=== PATIENT | female | born 1960 | race Caucasian/White ===

== ENCOUNTER → 2016-07-08 | Outpatient (CLI) | payer MEDICARE, MEDICAID ==
[~2016-07-08] MED LIST: .; ALAVERT10 M1 PO; AMARYL4 MG PO; AMLODIPINE5 MG PO; AVANDIA2 MG PO; AVANDIA4 MG PO; CLARITIN10 MG PO; DARVOCET N 1001 TAB PO; DELTASONE20 MG PO; DIABETA5 MG PO; DUONEB 3 MG/3 ML3 M1 NEB; EVISTA60 MG PO; HYDROCHLOROTH12.5 M1 PO; JANUVIA100 MG PO; LANTUS SOLOS100 U/M1 SC; LANTUS100 U/ML SC; LEVAQUIN750 M1 PO; LEVAQUIN750 MG PO; LEVOFLOXACIN500 MG PO; LISINOPRIL AND1 TAB PO; LISINOPRIL HCTZ1 TA1 PO; LISINOPRIL20 MG PO; MOTRIN400 MG PO; MOTRIN800 MG PO; NEURONTIN100 MG PO; NICODERM21 MG/24 H T; NORVASC5 MG PO; NOVOLIN 70100 UNIT/1 SQ; OXYGEN NAS; OYSTER SHELL CA1 T17 PO; PREDNISONE10 MG PO; PROTONIX40 MG PO; PROVENTIL0.09 MG/AC IH; ROBITUSSIN AC 110 ML PO; ROCEPHIN1 GM IV; SINGULAIR10 M1 PO; SINGULAIR10 MG PO; SYMBICORT1 AE1 IH; SYMBICORT1 AE1 INH; TRADJENTA5 M1 PO; TUSSI-ORGANIDI480 ML PO; ZITHROMAX Z PA250 MG PO; ZITHROMAX500 M1 IV; [UNRECOGNIZED DRUG - OTHER] PO
== END | disposition home or self-care (01) ==
LOC: MAMMO 11:39
DX: Z12.31 Encounter for screening mammogram for malignant neoplasm of breast (principal); Z12.39 Encounter for other screening for malignant neoplasm of breast; Z13.820 Encounter for screening for osteoporosis; M81.0 Age-related osteoporosis without current pathological fracture

== ENCOUNTER → 2017-07-14 | Outpatient (CLI) | payer MEDICARE | END | disposition home or self-care (01) | LOC: MAMMO 14:34 | DX: Z12.31 Encounter for screening mammogram for malignant neoplasm of breast (principal) ==

== ENCOUNTER → 2018-10-28 | Outpatient (CLI) | payer OTHER ==
[~2018-10-28] MED LIST changes: +ATORVASTATIN CA20 M1 PO; +DOXYCYCLINE100 M3 PO; +LANTUS SOL100 UNIT/1 SC; +LISINOPRIL10 M1 PO; +MELOXICAM15 MG PO; +METFORMIN HYDR500 MG PO; +NEURONTIN600 MG PO
== END | disposition home or self-care (01) ==
LOC: MAMMO 06:59
DX: Z12.31 Encounter for screening mammogram for malignant neoplasm of breast (principal)

== ENCOUNTER 2018-10-29 14:47 | Inpatient (IN) | payer OTHER ==
[~2018-10-29] VITALS: Ht 160 cm; Wt 104.5 kg
--- NOTE | ~2018-10-29 | PR ---
[place], [place] PROGRESS NOTE [facility]: [facility] #[facility] [id number] UNIT #: [id number] ROOM: 505 DOCTOR: JEANINE STEWART MD,TON BIRTHDATE: [birth year] DOS: 10/31/2018 PULMONARY PROGRESS NOTE SUBJECTIVE: She has been doing very well and noted with gradual reduction and improvement of respiratory symptoms progressively. There were no symptoms of chest pain, fever or chills reported. The shortness of breath has been improving. The patient's coughing has been decreased significantly. OBJECTIVE: VITAL SIGNS: Normal temperature, respiratory rate 19, heart rate of 78, blood pressure 154/80. Pulse oxygen saturation on 3 liters nasal cannula 95% saturation recorded. HEENT: Head was atraumatic. Eyes nonicterus. NECK: Supple. CARDIOVASCULAR SYSTEM: S1, S2 is audible. LUNGS: The patient was noted without any wheezing or crackles at the present time. Breaths are noted [id number] diminished bilaterally. ABDOMEN: Soft, nontender. Bowel sounds present. EXTREMITIES: No acute change. IMPRESSION: Stable respiratory status was noted at the present time with favorable improvement continued for acute exacerbation of chronic obstructive pulmonary disease, gradually and progressively. PLAN OF MANAGEMENT: Consideration for possible home discharge at this time from the pulmonary standpoint. Continuation of the therapy, plan of management, care plan. Additional treatment changes will be made based on progression of the illness. TON SOLORZANO MD CM:PNTRANS [id number] TON STEWART MD 11/01/18 0140 interface
--- NOTE | ~2018-10-29 | CON ---
[place], [place] REPORT OF CONSULTATION NAME: ROYCE CANALES [facility] #: [id number] UNIT #: [id number] ROOM: 505 DOCTOR: JEANINE STEWART MDTON BIRTHDATE: [birth year] DOS: 10/30/2018 PULMONARY CONSULTATION, EVALUATION AND MANAGEMENT CONSULTATION REQUESTED BY: Hospitalist service. REASON FOR CONSULTATION: For assessment of COPD. HISTORY OF PRESENT ILLNESS: This is a 58-year-old white female patient is known to me from the past. She presented to the hospital as the patient was noted with increased symptoms of shortness of breath, coughing, and wheezing for the past few days. Symptoms noted gradually progressive and not responding to treatment with current home medical management, presented to the Emergency Room where she has been assessed and hospitalized yesterday for further medical management. The patient stating reduction in respiratory symptom since hospitalization. The cough has been noted with question of sputum expectoration. Denies chest pain or hemoptysis. REVIEW OF SYSTEMS: CONSTITUTIONAL: Fatigue and tiredness reported. Denies symptoms of fever or chills. EYES: Denies any burning, redness, or tenderness. EARS, NOSE, AND THROAT SYMPTOMS: Denies any symptoms of sore throat, hoarseness, otalgia, postnasal drainage or epistaxis. CARDIOVASCULAR: Denies angina pain, edema, or pain of the lower extremity. GASTROINTESTINAL: No dysphagia, nausea, vomiting, diarrhea, abdominal pain, hematemesis, melena, or hematochezia. SKIN: Denies abnormal lesions or rashes. CENTRAL NERVOUS SYSTEM: Denies dizziness, headache, diplopia, or syncopal episode. Remaining systems were reviewed and they were noted all negative. PAST MEDICAL HISTORY: 1. Chronic obstructive pulmonary disease. 2. Type 2 diabetes mellitus. 3. Essential hypertension. 4. General anxiety disorder. 5. Mild obesity. 6. Previous history of nicotine dependence. PAST SURGICAL HISTORY: 1. Cholecystectomy. 2. Therapeutic bronchoscopy, last one done in 2016. 3. Intubation and mechanical ventilation in 2016 for the respiratory failure management. SOCIAL HISTORY: The patient is , has 2 children, lives at home. Denies any history of illicit drug use or any alcohol use. Tobacco use reported as a teenager, 2 packs of cigarettes a day, stating she has not been smoking [place], [place] REPORT OF CONSULTATION [id number] UN[facility] #: [id number] ROOM: 505 DOCTOR: JEANINE STEWART MD,TON BIRTHDATE: 60 cigarettes since 2015. FAMILY HISTORY: The patient's father at age 76 with complication of myocardial infarction. Mother , with complication of emphysema. CURRENT MEDICATIONS: Which were actively administered were IV Solu-Medrol 60 mg b.i.d., Pulmicort Respules, lisinopril, loratadine, calcium carbonate, vitamin D, amlodipine, Lovenox for DVT prophylaxis, Amaryl, Protonix, Lipitor, gabapentin, Mucinex, DuoNeb, IV Rocephin, Zithromax, and other p.r.n. meds. DRUG ALLERGIES: No known drug allergies. PHYSICAL EXAMINATION: GENERAL: This is a 58-year-old female patient who has been currently sitting on the bed this morning of assessment. Height of 5 feet 3 inches, weight of 230 pounds. VITAL SIGNS: For the patient, which were recorded as normal temperature, respiratory rate of 18-20, heart rate of 86, 115 on admission, blood pressure 142/74-127/58. Pulse oxygen saturation on 3 liters nasal cannula saturation at rest. HEENT: Chronic obesity. Head was atraumatic. Eyes nonicterus. NECK: Supple. CARDIOVASCULAR: S1, S2 is audible. LUNGS: Noted with decreased breaths sounds were noted bilaterally. ABDOMEN: Soft, nontender. Bowel sounds present. EXTREMITIES: Noted without any edema, clubbing, or cyanosis. Moderate obesity. VISIBLE SKIN: No lesions or rashes. CENTRAL NERVOUS SYSTEM: Cranial nerves 2-12 intact. LABORATORY DATA: Which was reviewed on admission. CBC on 10/29/2018 as eosinophils of 4.5%, WBC count 7.7, otherwise normal CBC. Lactic acid 2.7, followup of 2.3. CMP of 10/29/2017, glucose 415 creatinine 1.33. Troponin 3 sets was noted as minimal elevation in troponin 0.053. The CMP that was done this morning, BUN 16, creatinine 1.30, glucose elevated at 415. Magnesium was 1.4. CBC this morning as normal CBC. PT/INR this morning was normal. The chest x-ray that was done in the Emergency room, 2-view was reviewed and it shows evidence of area of consolidation in the right lower lobe was noted any acute findings. IMPRESSION: 1. The patient who has been currently admitted to the hospital noted with acute exacerbation of chronic obstructive pulmonary disease associated with acute right lower lobe pneumonia, community-acquired infection. 2. Uncontrolled hyperglycemia with history of diabetes mellitus was also noted secondary to corticosteroids. 3. Acute sepsis was noted on admission related to current acute pneumonia. 4. Chronic obesity as well. 5. History of past tobacco use, stating no active tobacco use in the last 3 years. [place], [place] REPORT OF CONSULTATION NAME: ROYCE CANALES UNIT #: [id number] ROOM: 505 DOCTOR: JEANINE STEWART MD,TON BIRTHDATE: [birth year] PLAN OF MANAGEMENT: The patient seemed to be responding to current treatment with the use of the antibiotics, bronchodilators. Monitor culture results as well. Obtain the urine for Legionella antigen and strep antigen and viral assess for the current community-acquired pneumonia. Other therapy, plan of management and additional treatment changes will be made this patient based on the progression of the illness. Follow up chest x-ray in the next couple of days will be done to assess the progression of the current pulmonary infiltration progression. Other therapy, plan of management and additional treatment changes will be made for this patient based on the progression of the illness. Thanks for allowing me to participate in the care of this patient. TON SOLORZANO MD CM:CONSTR:REPORT OF CONSULTATION 1459 11/22/18 0951 interface
--- NOTE | ~2018-10-29 | EKG ---
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
[~2018-10-29 14:47] MED LIST changes: -ATORVASTATIN CA20 M1 PO; -DOXYCYCLINE100 M3 PO; -LANTUS SOL100 UNIT/1 SC; -LISINOPRIL10 M1 PO; -MELOXICAM15 MG PO; -METFORMIN HYDR500 MG PO; -NEURONTIN600 MG PO
[2018-10-29 14:50] VITALS: BP 143/74
[2018-10-29 16:26] LABS: BASO # 0.1 10*3/uL (0.0-0.1); BASO % 0.7 % (0.0-1.0); EOS # 0.5 10*3/uL (0.0-0.4); EOS % 4.5 % (1.0-4.0); HEMOGLOBIN 14.3 g/dl (12.0-16.0); LYMPH # 3.4 10*3/uL (1.3-4.4); LYMPH % 31.7 % (27.0-41.0); MEAN CELL VOLUME 94.5 fl (81.0-99.0); MEAN CORPUSCULAR HGB 29.4 pg (27.0-31.0); MEAN CORPUSCULAR HGB CONC 31.1 g/dl (33.0-37.0); MEAN PLATELET VOLUME 9.9 fl (9.6-12.3); MONO # 0.6 10*3/uL (0.1-1.0); MONO % 5.9 % (3.0-9.0); NEUT # 6.1 10*3/uL (2.3-7.9); NEUT % 56.6 % (47.0-73.0); PLATELET COUNT AUTOMATED 313 10*3/uL (130-400); RED BLOOD COUNT 4.87 10*6/uL (4.10-5.10); RED CELL DISTRI WIDTH 14.5 % (0-14.5); WHITE BLOOD COUNT 10.7 10*3/uL (4.8-10.8)
[2018-10-29 16:50] LABS: ALBUMIN 3.1 gm/dl (3.1-4.5); CREATININE 1.33 mg/dL (0.55-1.02); POTASSIUM 4.5 mmol/L (3.5-5.1); TOTAL PROTEIN 7.8 gm/dL (6.4-8.2)
--- NOTE | 2018-10-29 16:52 | NUR ---
PT REFUSES TO DISROBE, REMAINS CLOTHED AT HER REQUEST UNTIL ADMISSION.
[2018-10-29 17:00] VITALS: BP 156/66
[2018-10-29 17:10] LABS: BILIRUBIN NEGATIVE (NEGATIVE); BLOOD NEGATIVE (NEGATIVE); CLARITY SL CLOUDY (CLEAR); COLOR YELLOW (YELLOW); GLUCOSE 3+ (NEGATIVE); KETONE TRACE (NEGATIVE); LEUKO ESTERASE NEGATIVE (NEGATIVE); NITRITE NEGATIVE (NEGATIVE); SPECIFIC GRAVITY >= 1.030 (1.005-1.030); UROBILINOGEN 0.2 E.U./dl (0.2-1.0)
[2018-10-29 17:19] LABS: BACTERIA TRACE; EPITHELIAL CELLS 20-25
[2018-10-29 17:20] LABS: RBC 0-2 rbc/hpf (0-2)
[2018-10-29 18:03] VITALS: BP 131/74
--- NOTE | 2018-10-29 18:40 | NUR ---
A 58, admitted to 5E, under the services of LAXMI Camp DO with a diagnosis of SEVERE SEPSIS, HYPERGLYCEMIA, RENAL INSUFFICIENCY, COPD EXACERBATION, PNEUMONIA. Chief complaint is SHORT OF BREATH. Patient arrived via bed from ER. Monitor applied. Initial assessment completed. Vital signs taken and recorded. LAXMI CAMP DO notified of admission to the unit. Orders received. See assessment for past medical history, medications and allergies. Patient and/or family oriented to unit. [address] visitation policy reviewed. Clothing/patient valuable form completed. SKIN INYACT WITH NO WOUNDS. PNEUMONIA VACCINATION CURRENT. WALTER VILLALTA
--- NOTE | 2018-10-29 19:37 | NUR ---
INSTRUCTION ON FLUTTER DONE WITH PT. TECHNIQUE GONE OVER AND OBSERVED WITH PT. PT IS NOTED TO HAVE GOOD TECHNIQUE AND APPEARS TO HAVE GOOD TOLERATION OF DEVICE. INSTRUCTED PT TO PERFORM Q1H. WILL REASSESS COMPLIANCE WITH FLUTTER.
[2018-10-29 20:00] VITALS: BP 140/72
[2018-10-29] MEDS ORDERED: NEURONTIN600 MG PO (20:24)
[2018-10-29] MEDS ORDERED: MELOXICAM15 MG PO (20:27)
[2018-10-29] MEDS ORDERED: LANTUS SOL100 UNIT/1 SC (20:28)
[2018-10-29] MEDS ORDERED: ATORVASTATIN CA20 M1 PO (20:28)
[2018-10-29] MEDS ORDERED: METFORMIN HYDR500 MG PO (20:29)
[2018-10-29] MEDS ORDERED: LISINOPRIL10 M1 PO (20:32)
--- NOTE | 2018-10-29 20:41 | NUR ---
PTS HOME MEDICATIONS VERIFIED. DR VARGAS NOTIFIED
--- NOTE | 2018-10-29 22:01 | NUR ---
CALLED GALE VARGAS WITH [employer] SAID SHE WA JUST GOING TO WATCH.
[2018-10-30] VITALS: BP 127/58
--- NOTE | 2018-10-30 01:01 | NUR ---
INFORMED DR VARGAS OF ELEVATED TROPONIN. CONTINUE TO MONITOR THE PT.
[2018-10-30 06:04] LABS: HEMATOCRIT 43.4 % (37.0-47.0); HEMOGLOBIN 13.2 g/dl (12.0-16.0); MEAN CELL VOLUME 95.6 fl (81.0-99.0); MEAN CORPUSCULAR HGB 29.1 pg (27.0-31.0); MEAN CORPUSCULAR HGB CONC 30.4 g/dl (33.0-37.0); MEAN PLATELET VOLUME 10.2 fl (9.6-12.3); PLATELET COUNT AUTOMATED 263 10*3/uL (130-400); RED BLOOD COUNT 4.54 10*6/uL (4.10-5.10); RED CELL DISTRI WIDTH 14.4 % (0-14.5); WHITE BLOOD COUNT 7.8 10*3/uL (4.8-10.8)
[2018-10-30 06:31] LABS: ALBUMIN 2.8 gm/dl (3.1-4.5); CREATININE 1.3 mg/dL (0.55-1.02); POTASSIUM 4.9 mmol/L (3.5-5.1)
[2018-10-30 06:35] LABS: THYROID STIM HORMONE (HS) 0.322 uIU/ml (0.358-4.75); TOTAL PROTEIN 7.5 gm/dL (6.4-8.2)
[2018-10-30 06:38] LABS: TOTAL CELLS COUNTED 100 #CELLS
[2018-10-30 06:39] LABS: PLATELET SUFFICIENCY NORMAL (NORMAL); POLYCHROMASIA SLIGHT
[2018-10-30 06:42] LABS: INTERNATIONAL NORM RATIO 0.9 (2.0-3.5)
[2018-10-30 06:52] LABS: VITAMIN D, 25-HYDROXY 39.4 ng/mL (30-100)
[2018-10-30 08:00] VITALS: BP 160/80
--- NOTE | 2018-10-30 08:00 | NUR ---
MEDICATED WITH TYLENOL PER PRN ORDER FOR COMPLAINTS OF HEADACHE. WILL MONITOR FOR EFFECTIVENESS.
--- NOTE | 2018-10-30 10:00 | NUR ---
PT STATES TYLENOL HELPED WITH HEADACHE.
[2018-10-30 10:07] LABS: FREE T4 1.1 ng/dl (0.76-1.46)
[2018-10-30 10:12] LABS: THYROID STIM HORMONE (HS) 0.326 uIU/ml (0.358-4.75)
--- NOTE | 2018-10-30 10:59 | NUR ---
DR SOLORZANO IN TO SEE PT AT TIME REGARDING NEW CONSULT.
[2018-10-30 12:00] VITALS: BP 146/85
[2018-10-30 16:00] VITALS: BP 151/74
[2018-10-30 20:00] VITALS: BP 147/86
--- NOTE | 2018-10-30 23:46 | NUR ---
PATIENT IS SLEEPING WITH EASY AND REGULAR RESPERS ON 3L VIA NASAL CANNULA. NO S/S OF DISTRESS NOTED AT THIS TIME. BED IS LOW, LOCKED, AND CALL LIGHT IS WITHIN REACH. WILL MONITOR.
[2018-10-31] VITALS: BP 156/82
[2018-10-31 06:58] LABS: BASO % 0.1 % (0.0-1.0); HEMOGLOBIN 13.5 g/dl (12.0-16.0); LYMPH # 1.5 10*3/uL (1.3-4.4); LYMPH % 9.6 % (27.0-41.0); MEAN CELL VOLUME 94.4 fl (81.0-99.0); MEAN CORPUSCULAR HGB CONC 30.7 g/dl (33.0-37.0); MEAN PLATELET VOLUME 10.3 fl (9.6-12.3); MONO # 0.5 10*3/uL (0.1-1.0); MONO % 3.3 % (3.0-9.0); NEUT # 13.2 10*3/uL (2.3-7.9); PLATELET COUNT AUTOMATED 314 10*3/uL (130-400); RED BLOOD COUNT 4.66 10*6/uL (4.10-5.10); RED CELL DISTRI WIDTH 14.6 % (0-14.5); WHITE BLOOD COUNT 15.4 10*3/uL (4.8-10.8)
[2018-10-31 07:23] LABS: CHLORIDE 94 mmol/L (98-107); SODIUM 135 mmol/L (136-145)
[2018-10-31 07:31] LABS: ALBUMIN 3.2 gm/dl (3.1-4.5); ALKALINE PHOSPHATASE 126 U/L (45-117); BUN 25 mg/dl (7-24); PHOSPHOROUS 4.3 mg/dL (2.5-4.9); SGOT/AST 14 IU/L (3-35); SGPT/ALT 19 U/L (12-78); TOTAL PROTEIN 7.8 gm/dL (6.4-8.2)
[2018-10-31 08:00] VITALS: BP 122/78; BP 154/80
[2018-10-31 12:00] VITALS: BP 156/79
[2018-10-31] MEDS ORDERED: PREDNISONE10 MG PO (15:15)
[2018-10-31] MEDS ORDERED: LEVAQUIN750 M1 PO (15:15)
--- NOTE | 2018-10-31 15:30 | NUR ---
Discharge instructions reviewed with patient/family. Patient receptive and verbalizes understanding. Follow-up care arranged. Written instructions given to patient/family. IV site and lunchroom monitor removed. Pt trasnported to lobby via wheelchair. KYLE TURPIN
[2018-11-02 18:08] LABS: ADENOVIRUS Negative (Negative); INFLUENZA A Negative (Negative); INFLUENZA B Negative (Negative); METAPNEUMOVIRUS Positive (Negative); PARAINFLUENZA 1 Negative (Negative); PARAINFLUENZA 2 Negative (Negative); PARAINFLUENZA 3 Negative (Negative); RHINOVIRUS Negative (Negative); RSV A Negative (Negative); RSV B Negative (Negative)
== END 2018-10-31 15:30 | disposition home or self-care (01) | DRG 871 ==
LOC: ED 14:47 → EDHOLD 17:44 → 5E 18:02
PROVIDERS: Internal Medicine; Internal Medicine Critical Care Medicine; Physician Assistant; Student in an Organized Health Care Education/Training Program; ADMIT Emergency Medicine
DX: A41.9 Sepsis, unspecified organism (principal); J18.1 Lobar pneumonia, unspecified organism; E44.0 Moderate protein-calorie malnutrition; J96.10 Chronic respiratory failure, unspecified whether with hypoxia or hypercapnia; Z68.41 Body mass index [BMI] 40.0-44.9, adult; N18.3 Chronic kidney disease, stage 3 (moderate); R65.20 Severe sepsis without septic shock; J43.9 Emphysema, unspecified; I12.9 Hypertensive chronic kidney disease with stage 1 through stage 4 chronic kidney disease, or unspecified chronic kidney disease; E53.8 Deficiency of other specified B group vitamins; K21.9 Gastro-esophageal reflux disease without esophagitis; F32.9 Major depressive disorder, single episode, unspecified; E11.22 Type 2 diabetes mellitus with diabetic chronic kidney disease; F41.1 Generalized anxiety disorder; E66.9 Obesity, unspecified; E78.5 Hyperlipidemia, unspecified; D72.1 Eosinophilia; E87.8 Other disorders of electrolyte and fluid balance, not elsewhere classified; R80.0 Isolated proteinuria; E11.65 Type 2 diabetes mellitus with hyperglycemia; Z79.4 Long term (current) use of insulin; Z87.891 Personal history of nicotine dependence; Z90.49 Acquired absence of other specified parts of digestive tract; Z82.49 Family history of ischemic heart disease and other diseases of the circulatory system; Z82.5 Family history of asthma and other chronic lower respiratory diseases; Z83.3 Family history of diabetes mellitus; Z80.8 Family history of malignant neoplasm of other organs or systems; Z79.899 Other long term (current) drug therapy

== ENCOUNTER 2019-02-11 19:44 | Inpatient (IN) | payer OTHER ==
[~2019-02-11] VITALS: Ht 157.4 cm; Wt 105.4 kg
--- NOTE | ~2019-02-11 | EKG ---
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
[~2019-02-11 19:44] MED LIST changes: +ATORVASTATIN CA20 M1 PO; +LANTUS SOL100 UNIT/1 SC; +LISINOPRIL10 M1 PO; +MELOXICAM15 MG PO; +METFORMIN HYDR500 MG PO; +NEURONTIN600 MG PO
[2019-02-11 19:45] VITALS: BP 157/78
[2019-02-11 20:24] LABS: BASO # 0.1 10*3/uL (0.0-0.1); BASO % 0.5 % (0.0-1.0); EOS % 0.1 % (1.0-4.0); HEMATOCRIT 43.3 % (37.0-47.0); HEMOGLOBIN 13.3 g/dl (12.0-16.0); LYMPH # 4.1 10*3/uL (1.3-4.4); LYMPH % 20.8 % (27.0-41.0); MEAN CELL VOLUME 96.9 fl (81.0-99.0); MEAN CORPUSCULAR HGB 29.8 pg (27.0-31.0); MEAN CORPUSCULAR HGB CONC 30.7 g/dl (33.0-37.0); MONO # 1.3 10*3/uL (0.1-1.0); MONO % 6.8 % (3.0-9.0); NEUT # 14.1 10*3/uL (2.3-7.9); NEUT % 70.8 % (47.0-73.0); PLATELET COUNT AUTOMATED 371 10*3/uL (130-400); RED BLOOD COUNT 4.47 10*6/uL (4.10-5.10); RED CELL DISTRI WIDTH 13.5 % (0-14.5); WHITE BLOOD COUNT 19.8 10*3/uL (4.8-10.8)
[2019-02-11 20:40] LABS: ALBUMIN 2.9 gm/dl (3.1-4.5); CREATININE 1.31 mg/dL (0.55-1.02); POTASSIUM 4.1 mmol/L (3.5-5.1); TOTAL PROTEIN 8.2 gm/dL (6.4-8.2)
[2019-02-11 20:46] VITALS: BP 136/69
[2019-02-11 20:46] LABS: TROPONIN I 0.184 ng/ml (<0.045)
[2019-02-11 21:48] VITALS: BP 143/73
[2019-02-11 21:50] VITALS: BP 153/72
[2019-02-11 23:21] LABS: BILIRUBIN NEGATIVE (NEGATIVE); BLOOD 1+ (NEGATIVE); CLARITY CLEAR (CLEAR); COLOR YELLOW (YELLOW); GLUCOSE 1+ (NEGATIVE); KETONE NEGATIVE (NEGATIVE); LEUKO ESTERASE 1+ (NEGATIVE); NITRITE NEGATIVE (NEGATIVE); PH 5.5 (5.0-9.0)
[2019-02-11 23:28] LABS: BACTERIA TRACE; WBC 21-30 wbc/hpf (0-5)
[2019-02-12] VITALS: BP 148/76
[2019-02-12 06:36] LABS: CREATININE 1.25 mg/dL (0.55-1.02); PHOSPHOROUS 3.4 mg/dL (2.5-4.9)
[2019-02-12 06:37] LABS: POTASSIUM 5.1 mmol/L (3.5-5.1)
[2019-02-12 06:41] LABS: THYROID STIM HORMONE (HS) 0.546 uIU/ml (0.358-4.75)
[2019-02-12 07:15] LABS: HEMATOCRIT 45.4 % (37.0-47.0); HEMOGLOBIN 13.1 g/dl (12.0-16.0); MEAN CELL VOLUME 99.3 fl (81.0-99.0); MEAN CORPUSCULAR HGB 28.7 pg (27.0-31.0); MEAN CORPUSCULAR HGB CONC 28.9 g/dl (33.0-37.0); MEAN PLATELET VOLUME 10.3 fl (9.6-12.3); PLATELET COUNT AUTOMATED 344 10*3/uL (130-400); RED BLOOD COUNT 4.57 10*6/uL (4.10-5.10); RED CELL DISTRI WIDTH 13.5 % (0-14.5); WHITE BLOOD COUNT 17.7 10*3/uL (4.8-10.8)
[2019-02-12 07:58] LABS: BASOPHILS 1 % (0-1); PLATELET SUFFICIENCY NORMAL (NORMAL); TOTAL CELLS COUNTED 100 #CELLS
[2019-02-12 08:04] LABS: VITAMIN D, 25-HYDROXY 30.2 ng/mL (30-100)
[2019-02-12 12:00] VITALS: BP 138/80
[2019-02-12 16:00] VITALS: BP 140/65
[2019-02-12 19:07] LABS: BILIRUBIN NEGATIVE (NEGATIVE); BLOOD TRACE-INTACT (NEGATIVE); CLARITY CLEAR (CLEAR); COLOR YELLOW (YELLOW); GLUCOSE 3+ (NEGATIVE); KETONE NEGATIVE (NEGATIVE); LEUKO ESTERASE NEGATIVE (NEGATIVE); NITRITE NEGATIVE (NEGATIVE); PH 5.5 (5.0-9.0); UROBILINOGEN 0.2 E.U./dl (0.2-1.0)
[2019-02-12 19:15] LABS: BACTERIA 2+; RBC 0-2 rbc/hpf (0-2); YEAST TRACE
[2019-02-12 20:00] VITALS: BP 129/60
[2019-02-13] VITALS: BP 136/62
[2019-02-13 06:25] LABS: BASO # 0.1 10*3/uL (0.0-0.1); BASO % 0.3 % (0.0-1.0); EOS % 0.1 % (1.0-4.0); HEMATOCRIT 38.5 % (37.0-47.0); HEMOGLOBIN 11.1 g/dl (12.0-16.0); LYMPH # 3.8 10*3/uL (1.3-4.4); LYMPH % 21.1 % (27.0-41.0); MEAN CELL VOLUME 98.5 fl (81.0-99.0); MEAN CORPUSCULAR HGB 28.4 pg (27.0-31.0); MEAN CORPUSCULAR HGB CONC 28.8 g/dl (33.0-37.0); MEAN PLATELET VOLUME 10.2 fl (9.6-12.3); MONO # 1.1 10*3/uL (0.1-1.0); MONO % 6.1 % (3.0-9.0); NEUT # 12.8 10*3/uL (2.3-7.9); NEUT % 71.2 % (47.0-73.0); PLATELET COUNT AUTOMATED 324 10*3/uL (130-400); RED BLOOD COUNT 3.91 10*6/uL (4.10-5.10); RED CELL DISTRI WIDTH 13.5 % (0-14.5)
[2019-02-13 06:52] LABS: BUN 29 mg/dl (7-24); CHLORIDE 98 mmol/L (98-107); CREATININE 1.03 mg/dL (0.55-1.02); POTASSIUM 4.3 mmol/L (3.5-5.1); SODIUM 137 mmol/L (136-145)
[2019-02-13 08:00] VITALS: BP 121/67
[2019-02-13 12:00] VITALS: BP 137/74
[2019-02-13 16:00] VITALS: BP 130/78
[2019-02-13 18:05] LABS: HEPATITIS B SURFACE AG Negative (Negative); HEPATITIS C VIRUS ANTIBODY 0.1 s/co (0.0-0.9)
[2019-02-13 20:00] VITALS: BP 145/69
[2019-02-14] VITALS: BP 120/66
[2019-02-14 06:42] LABS: HEMATOCRIT 40.3 % (37.0-47.0); HEMOGLOBIN 11.7 g/dl (12.0-16.0); MEAN CELL VOLUME 99.5 fl (81.0-99.0); MEAN CORPUSCULAR HGB 28.9 pg (27.0-31.0); MEAN PLATELET VOLUME 10.1 fl (9.6-12.3); PLATELET COUNT AUTOMATED 362 10*3/uL (130-400); RED BLOOD COUNT 4.05 10*6/uL (4.10-5.10); RED CELL DISTRI WIDTH 13.5 % (0-14.5); WHITE BLOOD COUNT 15.6 10*3/uL (4.8-10.8)
[2019-02-14 07:03] LABS: BUN 28 mg/dl (7-24); CHLORIDE 98 mmol/L (98-107); CREATININE 1.03 mg/dL (0.55-1.02); SODIUM 139 mmol/L (136-145)
[2019-02-14 07:11] LABS: TOTAL CELLS COUNTED 100 #CELLS
[2019-02-14 07:12] LABS: PLATELET SUFFICIENCY NORMAL (NORMAL)
[2019-02-14 08:00] VITALS: BP 122/84
[2019-02-14 12:00] VITALS: BP 143/74
[2019-02-14 16:00] VITALS: BP 139/74
[2019-02-14 20:00] VITALS: BP 135/74; BP 151/70
[2019-02-15] VITALS: BP 115/53
[2019-02-15 06:32] LABS: HEMATOCRIT 40.4 % (37.0-47.0); HEMOGLOBIN 11.9 g/dl (12.0-16.0); MEAN CORPUSCULAR HGB 29.2 pg (27.0-31.0); MEAN CORPUSCULAR HGB CONC 29.5 g/dl (33.0-37.0); MEAN PLATELET VOLUME 9.7 fl (9.6-12.3); PLATELET COUNT AUTOMATED 364 10*3/uL (130-400); RED BLOOD COUNT 4.08 10*6/uL (4.10-5.10); RED CELL DISTRI WIDTH 13.6 % (0-14.5); WHITE BLOOD COUNT 13.6 10*3/uL (4.8-10.8)
[2019-02-15 07:01] LABS: ALBUMIN 2.5 gm/dl (3.1-4.5); ALKALINE PHOSPHATASE 110 U/L (45-117); BUN 21 mg/dl (7-24); CHLORIDE 97 mmol/L (98-107); CREATININE 1.02 mg/dL (0.55-1.02); POTASSIUM 4.3 mmol/L (3.5-5.1); SGOT/AST 23 IU/L (3-35); SGPT/ALT 58 U/L (12-78); SODIUM 141 mmol/L (136-145); TOTAL PROTEIN 6.9 gm/dL (6.4-8.2)
[2019-02-15 07:04] LABS: PLATELET SUFFICIENCY NORMAL (NORMAL); TOTAL CELLS COUNTED 100 #CELLS
[2019-02-15 08:00] VITALS: BP 129/63
[2019-02-15] MEDS ORDERED: DOXYCYCLINE100 M3 PO (10:36)
== END 2019-02-15 11:29 | disposition home health service (06) | DRG 871 ==
LOC: ED 19:44 → 5E 21:19 → EDHOLD 21:19 → 5E 21:38
PROVIDERS: Family Medicine; Hospitalist; Internal Medicine; Physician Assistant; Student in an Organized Health Care Education/Training Program; ADMIT Internal Medicine
PROC: 0Y903ZZ Drainage of Right Buttock, Percutaneous Approach (ICD-10-PCS; principal; 2019-02-12)
DX: A41.9 Sepsis, unspecified organism (principal); E43 Unspecified severe protein-calorie malnutrition; J18.9 Pneumonia, unspecified organism; L03.317 Cellulitis of buttock; J44.1 Chronic obstructive pulmonary disease with (acute) exacerbation; J44.0 Chronic obstructive pulmonary disease with (acute) lower respiratory infection; E87.1 Hypo-osmolality and hyponatremia; J96.11 Chronic respiratory failure with hypoxia; L02.31 Cutaneous abscess of buttock; Z68.41 Body mass index [BMI] 40.0-44.9, adult; Z66 Do not resuscitate; Z51.5 Encounter for palliative care; R65.20 Severe sepsis without septic shock; E66.01 Morbid (severe) obesity due to excess calories; R74.0 Nonspecific elevation of levels of transaminase and lactic acid dehydrogenase [LDH]; B95.62 Methicillin resistant Staphylococcus aureus infection as the cause of diseases classified elsewhere; D72.810 Lymphocytopenia; E78.2 Mixed hyperlipidemia; I12.9 Hypertensive chronic kidney disease with stage 1 through stage 4 chronic kidney disease, or unspecified chronic kidney disease; N18.3 Chronic kidney disease, stage 3 (moderate); E11.22 Type 2 diabetes mellitus with diabetic chronic kidney disease; E53.8 Deficiency of other specified B group vitamins; E11.65 Type 2 diabetes mellitus with hyperglycemia; E87.8 Other disorders of electrolyte and fluid balance, not elsewhere classified; Z79.4 Long term (current) use of insulin; Z99.81 Dependence on supplemental oxygen; Z90.49 Acquired absence of other specified parts of digestive tract; Z87.891 Personal history of nicotine dependence; Z82.49 Family history of ischemic heart disease and other diseases of the circulatory system; Z82.5 Family history of asthma and other chronic lower respiratory diseases; Z83.3 Family history of diabetes mellitus; Z80.8 Family history of malignant neoplasm of other organs or systems; Z79.899 Other long term (current) drug therapy

== ENCOUNTER → 2019-10-27 | Day surgery (SDC) | payer OTHER ==
[~2019-10-27] VITALS: Ht 170.1 cm; Wt 108.0 kg
[~2019-10-27] MED LIST changes: +DOXYCYCLINE100 M3 PO
[2019-10-27 08:40] VITALS: BP 162/87
[2019-10-27 10:09] VITALS: BP 147/70
[2019-10-27 10:24] VITALS: BP 142/68
[2019-10-27 10:39] VITALS: BP 140/68
== END | disposition home or self-care (01) ==
LOC: SDC 10-25 12:30
DX: Z12.11 Encounter for screening for malignant neoplasm of colon (principal); I10 Essential (primary) hypertension; E11.40 Type 2 diabetes mellitus with diabetic neuropathy, unspecified; E78.5 Hyperlipidemia, unspecified; J44.9 Chronic obstructive pulmonary disease, unspecified; Z79.84 Long term (current) use of oral hypoglycemic drugs; Z79.899 Other long term (current) drug therapy; Z87.891 Personal history of nicotine dependence; Z98.890 Other specified postprocedural states; Z83.6 Family history of other diseases of the respiratory system
CPT/HCPCS: 00812; G0121

== ENCOUNTER → 2020-08-30 | Outpatient (CLI) | payer OTHER | END | disposition home or self-care (01) | LOC: MAMMO 06:45 | PROVIDERS: ATTEND Physician Assistant | DX: Z12.31 Encounter for screening mammogram for malignant neoplasm of breast (principal) ==

== ENCOUNTER → 2020-09-25 | Outpatient (CLI) | payer OTHER | END | disposition home or self-care (01) | LOC: RESCLI 06:40 | PROVIDERS: ATTEND Internal Medicine | DX: J43.9 Emphysema, unspecified (principal); I10 Essential (primary) hypertension; E55.9 Vitamin D deficiency, unspecified; J96.11 Chronic respiratory failure with hypoxia; K21.9 Gastro-esophageal reflux disease without esophagitis; E78.5 Hyperlipidemia, unspecified; E11.42 Type 2 diabetes mellitus with diabetic polyneuropathy; M19.90 Unspecified osteoarthritis, unspecified site; J30.2 Other seasonal allergic rhinitis; Z99.81 Dependence on supplemental oxygen; Z79.4 Long term (current) use of insulin; Z79.899 Other long term (current) drug therapy; Z87.891 Personal history of nicotine dependence ==

== ENCOUNTER 2020-12-27 13:50 | Inpatient (IN) | payer OTHER ==
[2020-12-27] VITALS (10 sets, daily range): BP systolic 126–155; BP diastolic 63–82
[~2020-12-27] VITALS: Ht 165.1 cm; Wt 111.6 kg
[2020-12-27 14:33] LABS: HEMATOCRIT 44.4 % (37.0-47.0); MEAN CELL VOLUME 95.7 fl (81.0-99.0); MEAN CORPUSCULAR HGB 28.4 pg (27.0-31.0); MEAN CORPUSCULAR HGB CONC 29.7 g/dl (33.0-37.0); MEAN PLATELET VOLUME 9.5 fl (9.6-12.3); NUCLEATED RED BLOOD CELL 0.1 % (0.0-0.0); PLATELET COUNT AUTOMATED 492 10*3/uL (130-400); RED BLOOD COUNT 4.64 10*6/uL (4.10-5.10); RED CELL DISTRI WIDTH 15.4 % (0-14.5); WHITE BLOOD COUNT 20.7 10*3/uL (4.8-10.8)
[2020-12-27 14:38] LABS: ABG BASE EXCESS 2.8 mmol/L (-2.0-2.0); ARTERIAL BLOOD GAS PH 7.259 (7.35-7.45); ARTERIAL BLOOD GAS PO2 71.7 (80-90)
[2020-12-27 14:53] LABS: PLATELET SUFFICIENCY HIGH (NORMAL); POLYCHROMASIA SLIGHT; TOTAL CELLS COUNTED 100 #CELLS
[2020-12-27 14:59] LABS: ALBUMIN 3.3 gm/dl (3.1-4.5); CREATININE 1.29 mg/dL (0.55-1.02); TOTAL PROTEIN 9.1 gm/dL (6.4-8.2)
[2020-12-27 15:01] LABS: TROPONIN I 0.103 ng/ml (<0.045)
[2020-12-27 17:26] LABS: ABG BASE EXCESS 6.4 mmol/L (-2.0-2.0); ARTERIAL BLOOD GAS PH 7.308 (7.35-7.45); ARTERIAL BLOOD GAS PO2 87.4 (80-90)
[2020-12-27] MEDS ORDERED: PROTONIX40 MG PO (18:23)
[2020-12-27] MEDS ORDERED: FISH OIL 1,2001 EAC6 PO (18:27)
[2020-12-27] MEDS ORDERED: ACTOS30 M1 PO (18:30)
[2020-12-27 20:52] LABS: ABG BASE EXCESS 1.9 mmol/L (-2.0-2.0); ARTERIAL BLOOD GAS PH 7.302 (7.35-7.45); ARTERIAL BLOOD GAS PO2 84.1 (80-90)
[2020-12-28] VITALS: BP 140/75
[2020-12-28 04:00] VITALS: BP 133/71
[2020-12-28 05:48] LABS: ALBUMIN 2.8 gm/dl (3.1-4.5); BUN 29 mg/dl (7-24); CHLORIDE 101 mmol/L (98-107); CREATININE 1.12 mg/dL (0.55-1.02); POTASSIUM 4.8 mmol/L (3.5-5.1); SGOT/AST 16 IU/L (3-35); SGPT/ALT 18 U/L (12-78); SODIUM 136 mmol/L (136-145)
[2020-12-28 05:50] LABS: ALKALINE PHOSPHATASE 102 U/L (45-117); TOTAL PROTEIN 7.9 gm/dL (6.4-8.2)
[2020-12-28 06:33] LABS: HEMATOCRIT 39.1 % (37.0-47.0); MEAN CELL VOLUME 94.7 fl (81.0-99.0); MEAN CORPUSCULAR HGB 28.1 pg (27.0-31.0); MEAN CORPUSCULAR HGB CONC 29.7 g/dl (33.0-37.0); MEAN PLATELET VOLUME 10.1 fl (9.6-12.3); PLATELET COUNT AUTOMATED 385 10*3/uL (130-400); RED BLOOD COUNT 4.13 10*6/uL (4.10-5.10); RED CELL DISTRI WIDTH 14.8 % (0-14.5); WHITE BLOOD COUNT 15.6 10*3/uL (4.8-10.8)
[2020-12-28 06:50] LABS: ACT PARTIAL THROMBO TIME 25.9 SECONDS (20.0-32.1)
[2020-12-28 06:55] LABS: TOTAL CELLS COUNTED 100 #CELLS
[2020-12-28 06:56] LABS: PLATELET SUFFICIENCY NORMAL (NORMAL)
[2020-12-28 07:37] LABS: ABG BASE EXCESS 6.5 mmol/L (-2.0-2.0); ARTERIAL BLOOD GAS PH 7.356 (7.35-7.45); ARTERIAL BLOOD GAS PO2 151.7 (80-90)
[2020-12-28 08:00] VITALS: BP 172/81
[2020-12-28 12:00] VITALS: BP 137/67
[2020-12-28 16:00] VITALS: BP 137/74
[2020-12-28 20:00] VITALS: BP 135/74
[2020-12-29] VITALS: BP 132/70
[2020-12-29 06:08] LABS: ALBUMIN 2.8 gm/dl (3.1-4.5); CREATININE 1.13 mg/dL (0.55-1.02); POTASSIUM 4.9 mmol/L (3.5-5.1); TOTAL PROTEIN 7.6 gm/dL (6.4-8.2)
[2020-12-29 06:28] LABS: BASO % 0.2 % (0.0-1.0); HEMATOCRIT 39.1 % (37.0-47.0); LYMPH # 2.2 10*3/uL (1.3-4.4); LYMPH % 11.9 % (27.0-41.0); MEAN CELL VOLUME 95.1 fl (81.0-99.0); MEAN CORPUSCULAR HGB 28.2 pg (27.0-31.0); MEAN CORPUSCULAR HGB CONC 29.7 g/dl (33.0-37.0); MEAN PLATELET VOLUME 10.3 fl (9.6-12.3); MONO # 0.5 10*3/uL (0.1-1.0); MONO % 2.9 % (3.0-9.0); NEUT # 15.3 10*3/uL (2.3-7.9); PLATELET COUNT AUTOMATED 374 10*3/uL (130-400); RED BLOOD COUNT 4.11 10*6/uL (4.10-5.10); RED CELL DISTRI WIDTH 14.8 % (0-14.5); WHITE BLOOD COUNT 18.2 10*3/uL (4.8-10.8)
[2020-12-29 08:00] VITALS: BP 164/83
[2020-12-29 12:00] VITALS: BP 140/63
[2020-12-29 16:00] VITALS: BP 133/60
[2020-12-29 20:00] VITALS: BP 154/63
[2020-12-30] VITALS: BP 123/61
[2020-12-30 05:49] LABS: ALBUMIN 2.9 gm/dl (3.1-4.5); ALKALINE PHOSPHATASE 90 U/L (45-117); BUN 41 mg/dl (7-24); CHLORIDE 100 mmol/L (98-107); CREATININE 0.95 mg/dL (0.55-1.02); POTASSIUM 4.9 mmol/L (3.5-5.1); SGOT/AST 13 IU/L (3-35); SGPT/ALT 23 U/L (12-78); SODIUM 134 mmol/L (136-145); TOTAL PROTEIN 7.6 gm/dL (6.4-8.2)
[2020-12-30 06:18] LABS: BASO % 0.1 % (0.0-1.0); HEMATOCRIT 39.5 % (37.0-47.0); LYMPH # 1.7 10*3/uL (1.3-4.4); LYMPH % 10.3 % (27.0-41.0); MEAN CELL VOLUME 92.5 fl (81.0-99.0); MEAN CORPUSCULAR HGB 29.7 pg (27.0-31.0); MEAN CORPUSCULAR HGB CONC 32.2 g/dl (33.0-37.0); MEAN PLATELET VOLUME 10.8 fl (9.6-12.3); MONO # 0.4 10*3/uL (0.1-1.0); MONO % 2.6 % (3.0-9.0); NEUT % 86.3 % (47.0-73.0); PLATELET COUNT AUTOMATED 389 10*3/uL (130-400); RED BLOOD COUNT 4.27 10*6/uL (4.10-5.10); RED CELL DISTRI WIDTH 14.9 % (0-14.5); WHITE BLOOD COUNT 16.2 10*3/uL (4.8-10.8)
[2020-12-30 08:00] VITALS: BP 131/62
[2020-12-30] MEDS ORDERED: DOXYCYCLINE100 M3 PO (11:10)
[2020-12-30] MEDS ORDERED: PREDNISONE10 MG PO (11:10)
== END 2020-12-30 12:54 | disposition home or self-care (01) | DRG 871 ==
LOC: ED 13:50 → EDHOLD 15:51 → ICCU 15:51 → 4E 12-29 16:50
PROVIDERS: Emergency Medicine; Internal Medicine; Internal Medicine Critical Care Medicine; Student in an Organized Health Care Education/Training Program; ADMIT Internal Medicine; ATTEND Internal Medicine
PROC: 5A09357 Assistance with Respiratory Ventilation, Less than 24 Consecutive Hours, Continuous Positive Airway Pressure (ICD-10-PCS; principal; 2020-12-27)
PROC: 5A09357 Assistance with Respiratory Ventilation, Less than 24 Consecutive Hours, Continuous Positive Airway Pressure (ICD-10-PCS; 2020-12-29)
PROC: 5A09357 Assistance with Respiratory Ventilation, Less than 24 Consecutive Hours, Continuous Positive Airway Pressure (ICD-10-PCS; 2020-12-30)
DX: A41.9 Sepsis, unspecified organism (principal); G93.41 Metabolic encephalopathy; N17.0 Acute kidney failure with tubular necrosis; J96.22 Acute and chronic respiratory failure with hypercapnia; J96.21 Acute and chronic respiratory failure with hypoxia; J18.9 Pneumonia, unspecified organism; I13.0 Hypertensive heart and chronic kidney disease with heart failure and stage 1 through stage 4 chronic kidney disease, or unspecified chronic kidney disease; E87.4 Mixed disorder of acid-base balance; R79.82 Elevated C-reactive protein (CRP); R65.20 Severe sepsis without septic shock; R79.89 Other specified abnormal findings of blood chemistry; E11.65 Type 2 diabetes mellitus with hyperglycemia; D47.3 Essential (hemorrhagic) thrombocythemia; E11.22 Type 2 diabetes mellitus with diabetic chronic kidney disease; E66.01 Morbid (severe) obesity due to excess calories; E78.5 Hyperlipidemia, unspecified; N18.31 Chronic kidney disease, stage 3a; J43.9 Emphysema, unspecified; F41.1 Generalized anxiety disorder; I50.9 Heart failure, unspecified; Z79.4 Long term (current) use of insulin; Z90.49 Acquired absence of other specified parts of digestive tract; Z87.891 Personal history of nicotine dependence; Z82.49 Family history of ischemic heart disease and other diseases of the circulatory system; Z82.5 Family history of asthma and other chronic lower respiratory diseases; Z83.3 Family history of diabetes mellitus; Z80.8 Family history of malignant neoplasm of other organs or systems; Z79.899 Other long term (current) drug therapy

== ENCOUNTER → 2021-04-03 | Outpatient (CLI) | payer OTHER ==
[~2021-04-03] MED LIST changes: +ACTOS30 M1 PO; +FISH OIL 1,2001 EAC6 PO
== END | disposition home or self-care (01) ==
LOC: RESCLI 01:07
PROVIDERS: ATTEND Student in an Organized Health Care Education/Training Program
DX: E11.42 Type 2 diabetes mellitus with diabetic polyneuropathy (principal); J43.9 Emphysema, unspecified; I10 Essential (primary) hypertension; E78.5 Hyperlipidemia, unspecified; K21.9 Gastro-esophageal reflux disease without esophagitis; M19.90 Unspecified osteoarthritis, unspecified site; J30.2 Other seasonal allergic rhinitis; Z79.899 Other long term (current) drug therapy; Z79.4 Long term (current) use of insulin; Z98.890 Other specified postprocedural states

== ENCOUNTER → 2021-05-31 | Outpatient (CLI) | payer OTHER | END | disposition home or self-care (01) | LOC: RAD 10:19 | PROVIDERS: ATTEND Physician Assistant | DX: M16.0 Bilateral primary osteoarthritis of hip (principal); M43.17 Spondylolisthesis, lumbosacral region; M47.817 Spondylosis without myelopathy or radiculopathy, lumbosacral region; E11.42 Type 2 diabetes mellitus with diabetic polyneuropathy; I10 Essential (primary) hypertension; J43.9 Emphysema, unspecified; M47.816 Spondylosis without myelopathy or radiculopathy, lumbar region; J30.2 Other seasonal allergic rhinitis; K21.9 Gastro-esophageal reflux disease without esophagitis; M19.90 Unspecified osteoarthritis, unspecified site; E78.5 Hyperlipidemia, unspecified ==

== ENCOUNTER → 2022-09-09 | Outpatient (CLI) | payer MEDICARE | END | disposition home or self-care (01) | LOC: CARD 13:30 | PROVIDERS: ATTEND Physician Assistant | DX: I51.7 Cardiomegaly (principal); R01.1 Cardiac murmur, unspecified ==

== ENCOUNTER 2022-09-29 17:43 | Inpatient (IN) | payer MEDICARE ==
[~2022-09-29] VITALS: Ht 160 cm; Wt 114.5 kg
[2022-09-29 17:45] VITALS: BP 198/74
[2022-09-29 18:07] VITALS: BP 171/69
[2022-09-29 18:16] LABS: BASO # 0.1 10*3/uL (0.0-0.1); BASO % 0.3 % (0.0-1.0); HEMATOCRIT 42.8 % (37.0-47.0); LYMPH # 2.4 10*3/uL (1.3-4.4); MEAN CELL VOLUME 94.3 fl (81.0-99.0); MEAN CORPUSCULAR HGB 27.8 pg (27.0-31.0); MEAN CORPUSCULAR HGB CONC 29.4 g/dl (33.0-37.0); MEAN PLATELET VOLUME 9.8 fl (9.6-12.3); MONO # 0.9 10*3/uL (0.1-1.0); MONO % 4.9 % (3.0-9.0); NEUT # 15.1 10*3/uL (2.3-7.9); PLATELET COUNT AUTOMATED 336 10*3/uL (130-400); RED BLOOD COUNT 4.54 10*6/uL (4.10-5.10); RED CELL DISTRI WIDTH 13.9 % (0-14.5); WHITE BLOOD COUNT 18.6 10*3/uL (4.8-10.8)
[2022-09-29 18:33] LABS: TOTAL PROTEIN 8.1 gm/dL (6.0-8.0)
[2022-09-29] MEDS ORDERED: CETIRIZINE10 MG PO (18:56)
[2022-09-29] MEDS ORDERED: DALIRESP500 MC1 PO (18:56)
[2022-09-29] MEDS ORDERED: JARDIANCE25 MG PO (18:57)
[2022-09-29 21:26] VITALS: BP 158/86
[2022-09-29 21:28] LABS: BILIRUBIN Negative (Negative); BLOOD Negative (Negative); CLARITY Clear (Clear); COLOR Yellow (Yellow); GLUCOSE 3+ (Negative); KETONE Negative (Negative); LEUKO ESTERASE Negative (Negative); NITRITE Negative (Negative); SPECIFIC GRAVITY >= 1.030 (1.001-1.030); UROBILINOGEN 0.2 E.U./dl (0.0-1.0)
[2022-09-29 21:45] LABS: BACTERIA TRACE
[2022-09-29 21:55] VITALS: BP 177/72
[2022-09-29 23:20] VITALS: BP 152/50
[2022-09-30 05:33] LABS: FREE T4 0.98 ng/dl (0.89-1.76); POTASSIUM 4.6 mmol/L (3.4-5.1); THYROID STIM HORMONE (HS) 0.394 uIU/ml (0.550-4.780)
[2022-09-30 06:10] LABS: BASO # 0.1 10*3/uL (0.0-0.1); BASO % 0.5 % (0.0-1.0); HEMATOCRIT 42.5 % (37.0-47.0); LYMPH # 1.4 10*3/uL (1.3-4.4); LYMPH % 9.9 % (27.0-41.0); MEAN CORPUSCULAR HGB 27.4 pg (27.0-31.0); MEAN CORPUSCULAR HGB CONC 29.2 g/dl (33.0-37.0); MEAN PLATELET VOLUME 10.1 fl (9.6-12.3); MONO # 0.2 10*3/uL (0.1-1.0); MONO % 1.3 % (3.0-9.0); NEUT # 12.5 10*3/uL (2.3-7.9); NEUT % 86.3 % (47.0-73.0); PLATELET COUNT AUTOMATED 331 10*3/uL (130-400); RED BLOOD COUNT 4.52 10*6/uL (4.10-5.10); RED CELL DISTRI WIDTH 13.9 % (0-14.5); WHITE BLOOD COUNT 14.5 10*3/uL (4.8-10.8)
[2022-09-30 06:45] LABS: VITAMIN D, 25-HYDROXY 25.9 ng/mL (30-100)
[2022-09-30 08:00] VITALS: BP 146/64
[2022-09-30 09:33] LABS: ABG BASE EXCESS 4.9 mmol/L (-2.0-2.0); ARTERIAL BLOOD GAS PH 7.353 (7.35-7.45); ARTERIAL BLOOD GAS PO2 67.3 (80-90)
[2022-09-30 12:00] VITALS: BP 141/52
[2022-09-30 16:00] VITALS: BP 116/54
[2022-09-30 20:00] VITALS: BP 111/59
[2022-10-01] VITALS: BP 124/58
[2022-10-01 06:38] LABS: POTASSIUM 3.8 mmol/L (3.4-5.1)
[2022-10-01 06:39] LABS: HEMATOCRIT 38.3 % (37.0-47.0); MEAN CELL VOLUME 94.8 fl (81.0-99.0); MEAN CORPUSCULAR HGB 27.5 pg (27.0-31.0); MEAN PLATELET VOLUME 10.2 fl (9.6-12.3); PLATELET COUNT AUTOMATED 346 10*3/uL (130-400); RED BLOOD COUNT 4.04 10*6/uL (4.10-5.10); RED CELL DISTRI WIDTH 14.5 % (0-14.5); WHITE BLOOD COUNT 14.3 10*3/uL (4.8-10.8)
[2022-10-01 06:41] LABS: MANUAL DIFF REFLEX YES
[2022-10-01 07:14] LABS: TOTAL CELLS COUNTED 100 #CELLS
[2022-10-01 07:15] LABS: PLATELET SUFFICIENCY NORMAL (NORMAL); POLYCHROMASIA SLIGHT
[2022-10-01 08:00] VITALS: BP 124/48
[2022-10-01 12:00] VITALS: BP 130/55
[2022-10-01] MEDS ORDERED: DOXYCYCLINE HY100 M3 PO (13:51)
[2022-10-01] MEDS ORDERED: PREDNISONE10 MG PO (13:51)
== END 2022-10-01 15:10 | disposition home or self-care (01) | DRG 871 ==
LOC: ED 17:43 → EDHOLD 20:34 → 4E 20:34
PROVIDERS: Family Medicine; Student in an Organized Health Care Education/Training Program; ADMIT Internal Medicine; ATTEND Internal Medicine
DX: A41.9 Sepsis, unspecified organism (principal); G93.41 Metabolic encephalopathy; J18.9 Pneumonia, unspecified organism; J96.21 Acute and chronic respiratory failure with hypoxia; J96.22 Acute and chronic respiratory failure with hypercapnia; J44.1 Chronic obstructive pulmonary disease with (acute) exacerbation; J44.0 Chronic obstructive pulmonary disease with (acute) lower respiratory infection; I13.0 Hypertensive heart and chronic kidney disease with heart failure and stage 1 through stage 4 chronic kidney disease, or unspecified chronic kidney disease; R65.20 Severe sepsis without septic shock; R73.9 Hyperglycemia, unspecified; E66.9 Obesity, unspecified; E78.49 Other hyperlipidemia; I50.9 Heart failure, unspecified; N18.32 Chronic kidney disease, stage 3b; Z79.4 Long term (current) use of insulin; Z79.899 Other long term (current) drug therapy; Z87.891 Personal history of nicotine dependence

== ENCOUNTER → 2022-10-23 | Outpatient (CLI) | payer MEDICARE, MEDICAID ==
[~2022-10-23] MED LIST changes: +CETIRIZINE10 MG PO; +DALIRESP500 MC1 PO; +DOXYCYCLINE HY100 M3 PO; +JARDIANCE25 MG PO
== END | disposition home or self-care (01) ==
LOC: MRI 11:00
PROVIDERS: ATTEND Physician Assistant
DX: M51.25 Other intervertebral disc displacement, thoracolumbar region (principal); M48.05 Spinal stenosis, thoracolumbar region; M25.78 Osteophyte, vertebrae; M47.894 Other spondylosis, thoracic region; M89.8X8 Other specified disorders of bone, other site

== ENCOUNTER 2022-10-27 11:58 | Inpatient (IN) | payer MEDICARE, MEDICAID ==
[~2022-10-27] VITALS: Ht 165.1 cm; Wt 118.5 kg
[2022-10-27 12:02] VITALS: BP 98/42
[2022-10-27 12:28] LABS: BASO # 0.1 10*3/uL (0.0-0.1); BASO % 0.5 % (0.0-1.0); HEMATOCRIT 44.3 % (37.0-47.0); LYMPH # 1.6 10*3/uL (1.3-4.4); LYMPH % 12.9 % (27.0-41.0); MEAN CELL VOLUME 97.8 fl (81.0-99.0); MEAN CORPUSCULAR HGB 27.8 pg (27.0-31.0); MEAN CORPUSCULAR HGB CONC 28.4 g/dl (33.0-37.0); MEAN PLATELET VOLUME 9.2 fl (9.6-12.3); MONO # 0.4 10*3/uL (0.1-1.0); MONO % 3.2 % (3.0-9.0); NEUT # 9.8 10*3/uL (2.3-7.9); NEUT % 81.3 % (47.0-73.0); PLATELET COUNT AUTOMATED 329 10*3/uL (130-400); RED BLOOD COUNT 4.53 10*6/uL (4.10-5.10)
[2022-10-27 13:49] LABS: ABG BASE EXCESS 15.2 mmol/L (-2.0-2.0); ARTERIAL BLOOD GAS PO2 229.5 (80-90)
[2022-10-27 13:54] LABS: ARTERIAL BLOOD GAS PH 7.168 (7.35-7.45)
[2022-10-27 13:58] LABS: ALKALINE PHOSPHATASE 125 U/L (46-116); BUN 19 mg/dl (9-23); CHLORIDE 98 mmol/L (98-107); POTASSIUM 4.6 mmol/L (3.4-5.1); SGPT/ALT 8 U/L (10-49)
[2022-10-27 14:34] LABS: BILIRUBIN Negative (Negative); BLOOD Negative (Negative); CLARITY Clear (Clear); COLOR Yellow (Yellow); GLUCOSE 3+ (Negative); KETONE Trace (Negative); LEUKO ESTERASE Negative (Negative); NITRITE Negative (Negative); SPECIFIC GRAVITY >= 1.030 (1.001-1.030); UROBILINOGEN 0.2 E.U./dl (0.0-1.0)
[2022-10-27 14:37] VITALS: BP 127/64
[2022-10-27 14:51] LABS: BACTERIA 1+; FINE GRANULAR CAST 0-2
[2022-10-27 14:52] LABS: MUCOUS 1+
[2022-10-27 17:18] VITALS: BP 117/53
[2022-10-27 17:22] LABS: ARTERIAL BLOOD GAS PH 7.239 (7.35-7.45); ARTERIAL BLOOD GAS PO2 75.3 (80-90)
[2022-10-27 18:00] VITALS: BP 116/62
[2022-10-27 20:00] VITALS: BP 147/65; BP 170/77
[2022-10-27 20:47] LABS: ABG BASE EXCESS 6.4 mmol/L (-2.0-2.0); ARTERIAL BLOOD GAS PH 7.303 (7.35-7.45); ARTERIAL BLOOD GAS PO2 69.9 (80-90)
[2022-10-28] VITALS: BP 133/67
[2022-10-28 06:22] LABS: BUN 17 mg/dl (9-23); CHLORIDE 103 mmol/L (98-107); POTASSIUM 4.3 mmol/L (3.4-5.1)
[2022-10-28 07:32] LABS: BASO # 0.1 10*3/uL (0.0-0.1); BASO % 0.5 % (0.0-1.0); EOS # 0.1 10*3/uL (0.0-0.4); EOS % 0.5 % (1.0-4.0); HEMATOCRIT 38.5 % (37.0-47.0); LYMPH # 3.4 10*3/uL (1.3-4.4); LYMPH % 29.5 % (27.0-41.0); MEAN CELL VOLUME 97.5 fl (81.0-99.0); MEAN CORPUSCULAR HGB 27.8 pg (27.0-31.0); MEAN CORPUSCULAR HGB CONC 28.6 g/dl (33.0-37.0); MONO # 0.8 10*3/uL (0.1-1.0); MONO % 6.6 % (3.0-9.0); NEUT # 7.2 10*3/uL (2.3-7.9); NEUT % 61.9 % (47.0-73.0); PLATELET COUNT AUTOMATED 283 10*3/uL (130-400); RED BLOOD COUNT 3.95 10*6/uL (4.10-5.10); RED CELL DISTRI WIDTH 14.3 % (0-14.5); WHITE BLOOD COUNT 11.5 10*3/uL (4.8-10.8)
[2022-10-28 08:00] VITALS: BP 120/50
[2022-10-28 08:15] LABS: ABG BASE EXCESS 15.6 mmol/L (-2.0-2.0); ARTERIAL BLOOD GAS PH 7.435 (7.35-7.45); ARTERIAL BLOOD GAS PO2 109.8 (80-90)
[2022-10-28] MEDS ORDERED: CLARITIN10 MG PO (09:41)
[2022-10-28] MEDS ORDERED: CETIRIZINE10 MG PO (09:49)
[2022-10-28] MEDS ORDERED: Amaryl2 MG PO (09:55)
[2022-10-28 12:00] VITALS: BP 125/86
[2022-10-28 12:03] LABS: ARTERIAL BLOOD GAS PH 7.419 (7.35-7.45)
[2022-10-28 16:00] VITALS: BP 126/77
[2022-10-28 20:00] VITALS: BP 138/53
[2022-10-29] VITALS: BP 143/85
[2022-10-29 06:25] LABS: BASO # 0.1 10*3/uL (0.0-0.1); BASO % 0.6 % (0.0-1.0); EOS # 0.2 10*3/uL (0.0-0.4); EOS % 2.2 % (1.0-4.0); HEMATOCRIT 37.2 % (37.0-47.0); LYMPH % 38.8 % (27.0-41.0); MEAN CELL VOLUME 96.1 fl (81.0-99.0); MEAN CORPUSCULAR HGB 27.6 pg (27.0-31.0); MEAN CORPUSCULAR HGB CONC 28.8 g/dl (33.0-37.0); MEAN PLATELET VOLUME 9.9 fl (9.6-12.3); MONO # 0.7 10*3/uL (0.1-1.0); MONO % 6.5 % (3.0-9.0); NEUT # 5.2 10*3/uL (2.3-7.9); NEUT % 51.3 % (47.0-73.0); PLATELET COUNT AUTOMATED 323 10*3/uL (130-400); RED BLOOD COUNT 3.87 10*6/uL (4.10-5.10); WHITE BLOOD COUNT 10.2 10*3/uL (4.8-10.8)
[2022-10-29 06:49] LABS: BUN 20 mg/dl (9-23); CHLORIDE 99 mmol/L (98-107); POTASSIUM 3.9 mmol/L (3.4-5.1)
[2022-10-29 08:00] VITALS: BP 150/90
[2022-10-29 12:00] VITALS: BP 140/80
[2022-10-29 16:00] VITALS: BP 151/62
[2022-10-29 20:00] VITALS: BP 145/57
[2022-10-30] VITALS: BP 118/64
[2022-10-30 08:00] VITALS: BP 126/70
[2022-10-30 12:00] VITALS: BP 147/72
[2022-10-30 16:00] VITALS: BP 140/67
[2022-10-30 20:00] VITALS: BP 131/65
[2022-10-31] VITALS: BP 134/61
[2022-10-31 06:10] LABS: BUN 26 mg/dl (9-23); CHLORIDE 101 mmol/L (98-107); POTASSIUM 3.3 mmol/L (3.4-5.1)
[2022-10-31 06:37] LABS: HEMATOCRIT 36.2 % (37.0-47.0); MEAN CELL VOLUME 93.8 fl (81.0-99.0); MEAN CORPUSCULAR HGB 27.7 pg (27.0-31.0); MEAN CORPUSCULAR HGB CONC 29.6 g/dl (33.0-37.0); MEAN PLATELET VOLUME 10.3 fl (9.6-12.3); PLATELET COUNT AUTOMATED 343 10*3/uL (130-400); RED BLOOD COUNT 3.86 10*6/uL (4.10-5.10); RED CELL DISTRI WIDTH 15.4 % (0-14.5); WHITE BLOOD COUNT 14.7 10*3/uL (4.8-10.8)
[2022-10-31 06:38] LABS: MANUAL DIFF REFLEX YES
[2022-10-31 06:53] LABS: POLYCHROMASIA SLIGHT; TOTAL CELLS COUNTED 100 #CELLS
[2022-10-31 06:54] LABS: OVALOCYTES FEW; PLATELET SUFFICIENCY NORMAL (NORMAL); ROULEAUX SLIGHT; TOXIC GRANULATION SLIGHT
[2022-10-31 07:21] LABS: ABG BASE EXCESS 7.6 mmol/L (-2.0-2.0); ARTERIAL BLOOD GAS PH 7.319 (7.35-7.45)
[2022-10-31 07:24] LABS: ARTERIAL BLOOD GAS PO2 24.5 (80-90)
[2022-10-31 08:00] VITALS: BP 140/62
[2022-10-31 08:31] LABS: ABG BASE EXCESS 3.4 mmol/L (-2.0-2.0); ARTERIAL BLOOD GAS PH 7.388 (7.35-7.45); ARTERIAL BLOOD GAS PO2 77.4 (80-90)
[2022-10-31 12:00] VITALS: BP 146/64
[2022-10-31 16:00] VITALS: BP 138/65
[2022-10-31] MEDS ORDERED: DOXYCYCLINE HY100 M3 PO (16:32)
[2022-10-31] MEDS ORDERED: PREDNISONE10 MG PO (16:32)
== END 2022-10-31 16:50 | disposition home or self-care (01) | DRG 871 ==
LOC: ED → 4E 14:05 → EDHOLD 14:05 → 4E 16:42
PROVIDERS: Family Medicine; Internal Medicine Critical Care Medicine; Nurse Practitioner Family; Registered Nurse; Student in an Organized Health Care Education/Training Program; ADMIT Internal Medicine; ATTEND Internal Medicine
PROC: 5A09457 Assistance with Respiratory Ventilation, 24-96 Consecutive Hours, Continuous Positive Airway Pressure (ICD-10-PCS; principal; 2022-10-27)
PROC: 5A09357 Assistance with Respiratory Ventilation, Less than 24 Consecutive Hours, Continuous Positive Airway Pressure (ICD-10-PCS; 2022-10-30)
PROC: 5A09357 Assistance with Respiratory Ventilation, Less than 24 Consecutive Hours, Continuous Positive Airway Pressure (ICD-10-PCS; 2022-10-31)
DX: A41.9 Sepsis, unspecified organism (principal); G93.41 Metabolic encephalopathy; J18.9 Pneumonia, unspecified organism; J96.22 Acute and chronic respiratory failure with hypercapnia; J96.21 Acute and chronic respiratory failure with hypoxia; E87.20 Acidosis, unspecified; I13.0 Hypertensive heart and chronic kidney disease with heart failure and stage 1 through stage 4 chronic kidney disease, or unspecified chronic kidney disease; I50.32 Chronic diastolic (congestive) heart failure; E44.0 Moderate protein-calorie malnutrition; E87.3 Alkalosis; J44.0 Chronic obstructive pulmonary disease with (acute) lower respiratory infection; J44.1 Chronic obstructive pulmonary disease with (acute) exacerbation; Z68.41 Body mass index [BMI] 40.0-44.9, adult; E66.09 Other obesity due to excess calories; G47.33 Obstructive sleep apnea (adult) (pediatric); R65.20 Severe sepsis without septic shock; E11.9 Type 2 diabetes mellitus without complications; E11.22 Type 2 diabetes mellitus with diabetic chronic kidney disease; E78.2 Mixed hyperlipidemia; N18.31 Chronic kidney disease, stage 3a; Z79.4 Long term (current) use of insulin

== ENCOUNTER → 2022-12-02 | Outpatient (CLI) | payer MEDICARE, MEDICAID ==
[~2022-12-02] MED LIST changes: +Amaryl2 MG PO
== END | disposition home or self-care (01) ==
LOC: US 12:36
PROVIDERS: ATTEND Physician Assistant
DX: N28.9 Disorder of kidney and ureter, unspecified (principal)

== ENCOUNTER 2023-09-26 06:14 | Emergency (ER) | payer OTHER, MEDICAID ==
[~2023-09-26] VITALS: Ht 160 cm; Wt 117.9 kg
[2023-09-26 06:18] VITALS: BP 160/77
[2023-09-26] MEDS ORDERED: Albuterol Sulf/Ipratropium 3 ML VIAL NEB ONE (06:20)
[2023-09-26] MEDS ORDERED: methylPREDNISolone sod succ 125 MG VIAL IV ONE (06:20)
[2023-09-26] MEDS ORDERED: GABAPENTIN600 MG PO (06:22)
[2023-09-26] MEDS ORDERED: MONTELUKAST SOD10 MG PO (06:23)
[2023-09-26] MEDS ORDERED: BUDESONIDE-FO10.2 G1 INH (06:23)
[2023-09-26] MEDS ORDERED: AMLODIPINE BESYL5 MG PO (06:23)
[2023-09-26] MEDS ORDERED: Ipratropium Brom3 ML INH (06:24)
[2023-09-26] MEDS ORDERED: TRULICITY0.75 MG/0. SC (06:24)
[2023-09-26] MEDS ORDERED: PANTOPRAZOLE SO40 MG PO (06:24)
[2023-09-26] MEDS ORDERED: ROFLUMILAST500 MCG PO (06:24)
[2023-09-26] MEDS ORDERED: Glimepiride1 MG PO (06:24)
[2023-09-26] MEDS ORDERED: VENT7GM INH (06:26)
[2023-09-26 06:52] LABS: BASO # 0.1 10*3/uL (0.0-0.1); BASO % 0.5 % (0.0-1.0); EOS # 0.3 10*3/uL (0.0-0.4); EOS % 2.9 % (1.0-4.0); HEMATOCRIT 43.4 % (37.0-47.0); LYMPH # 2.9 10*3/uL (1.3-4.4); LYMPH % 25.3 % (27.0-41.0); MEAN CELL VOLUME 92.5 fl (81.0-99.0); MEAN CORPUSCULAR HGB 27.3 pg (27.0-31.0); MEAN CORPUSCULAR HGB CONC 29.5 g/dl (33.0-37.0); MEAN PLATELET VOLUME 10.2 fl (9.6-12.3); MONO # 0.7 10*3/uL (0.1-1.0); MONO % 5.7 % (3.0-9.0); NEUT # 7.4 10*3/uL (2.3-7.9); NEUT % 65.2 % (47.0-73.0); PLATELET COUNT AUTOMATED 311 10*3/uL (130-400); RED BLOOD COUNT 4.69 10*6/uL (4.10-5.10); RED CELL DISTRI WIDTH 15.1 % (0-14.5); WHITE BLOOD COUNT 11.3 10*3/uL (4.8-10.8)
[2023-09-26 07:03] LABS: ACT PARTIAL THROMBO TIME 29.6 SECONDS (20.0-32.1)
[2023-09-26 07:21] LABS: ALKALINE PHOSPHATASE 126 U/L (46-116); BUN 10 mg/dl (9-23); CHLORIDE 104 mmol/L (98-107); CPK 102 U/L (34-171); LIPASE 47 U/L (12-53); POTASSIUM 4.2 mmol/L (3.4-5.1); SGPT/ALT 12 U/L (5-49); TOTAL PROTEIN 7.7 gm/dL (6.0-8.0)
[2023-09-26 07:36] LABS: ETHYL ALCOHOL < 3.0 mg/dl (<3)
[2023-09-26 07:45] LABS: BILIRUBIN Negative (Negative); BLOOD Negative (Negative); CLARITY Clear (Clear); COLOR Yellow (Yellow); GLUCOSE 1+ (Negative); KETONE Negative (Negative); LEUKO ESTERASE Negative (Negative); NITRITE Negative (Negative); SPECIFIC GRAVITY <= 1.005 (1.001-1.030); UROBILINOGEN 0.2 E.U./dl (0.0-1.0)
[2023-09-26 07:52] LABS: URINE AMPHETAMINES Negative (1000ng/ml); URINE BARBITURATES Negative (200ng/ml); URINE BENZODIAZEPINES Negative (200ng/ml); URINE CANNABINOIDS (THC) Negative (50ng/ml); URINE COCAINE Negative (300ng/ml); URINE METHADONE Negative (300ng/ml); URINE OPIATES Negative (300ng/ml); URINE PHENCYCLIDINE Negative (25ng/ml)
[2023-09-26 08:11] LABS: BACTERIA TRACE; RBC 0-2 rbc/hpf (0-2)
== END 2023-09-26 09:30 | disposition home or self-care (01) ==
LOC: ED 06:14
PROVIDERS: Internal Medicine
DX: F43.21 Adjustment disorder with depressed mood (principal); E11.649 Type 2 diabetes mellitus with hypoglycemia without coma; J44.9 Chronic obstructive pulmonary disease, unspecified; J45.909 Unspecified asthma, uncomplicated; Z90.49 Acquired absence of other specified parts of digestive tract; Z87.891 Personal history of nicotine dependence

== ENCOUNTER → 2023-11-05 | Outpatient (CLI) | payer OTHER, MEDICAID ==
[~2023-11-05] MED LIST changes: +AMLODIPINE BESYL5 MG PO; +BUDESONIDE-FO10.2 G1 INH; +GABAPENTIN600 MG PO; +Glimepiride1 MG PO; +Ipratropium Brom3 ML INH; +MONTELUKAST SOD10 MG PO; +PANTOPRAZOLE SO40 MG PO; +ROFLUMILAST500 MCG PO; +TRULICITY0.75 MG/0. SC; +VENT7GM INH
== END | disposition home or self-care (01) ==
LOC: CT 12:32
PROVIDERS: ATTEND Internal Medicine Critical Care Medicine
DX: Z12.2 Encounter for screening for malignant neoplasm of respiratory organs (principal); I25.10 Atherosclerotic heart disease of native coronary artery without angina pectoris; K44.9 Diaphragmatic hernia without obstruction or gangrene; E27.9 Disorder of adrenal gland, unspecified; J43.9 Emphysema, unspecified; K76.0 Fatty (change of) liver, not elsewhere classified; Z87.891 Personal history of nicotine dependence; Z80.1 Family history of malignant neoplasm of trachea, bronchus and lung; Z87.09 Personal history of other diseases of the respiratory system

== ENCOUNTER → 2024-11-18 | Outpatient (CLI) | payer OTHER, MEDICAID | END | disposition home or self-care (01) | LOC: CT 09:35 | PROVIDERS: ATTEND Internal Medicine Critical Care Medicine | DX: Z12.2 Encounter for screening for malignant neoplasm of respiratory organs (principal); J43.9 Emphysema, unspecified; I25.10 Atherosclerotic heart disease of native coronary artery without angina pectoris; K44.9 Diaphragmatic hernia without obstruction or gangrene; K76.0 Fatty (change of) liver, not elsewhere classified; E27.8 Other specified disorders of adrenal gland; Z87.891 Personal history of nicotine dependence ==

== ENCOUNTER → 2024-11-29 | Day surgery (SDC) | payer OTHER, MEDICAID ==
[~2024-11-29] VITALS: Ht 165.1 cm; Wt 97.5 kg
[~2024-11-29] MED LIST changes: +Albuterol Sulf/Ipratropium 3 ML VIAL NEB ONE; +Albuterol Sulfate 2.5 MG/0.5 ML VIAL NEB ONE; +Lidocaine Hydrochloride 4% 5 ML AMP NEB ONE; +Lidocaine Hydrochloride 4% 5 ML AMP ONE; +Lidocaine Hydrochloride 5 ML VIAL IJ ONE; +PROPOFOL 200 MG/20 ML VIAL IV ONE
[2024-11-29 08:18] VITALS: BP 150/69
[2024-11-29 10:05] VITALS: BP 112/52
[2024-11-29 10:20] VITALS: BP 120/26
[2024-11-29 10:35] VITALS: BP 126/51
[2024-11-30 09:07] LABS: ACID FAST SPEC PROCESSING Concentration (.)
== END | disposition home or self-care (01) ==
LOC: SDC 11-28 15:30
PROVIDERS: ATTEND Internal Medicine Critical Care Medicine
DX: R05.9 Cough, unspecified (principal); J44.1 Chronic obstructive pulmonary disease with (acute) exacerbation; I12.9 Hypertensive chronic kidney disease with stage 1 through stage 4 chronic kidney disease, or unspecified chronic kidney disease; E10.22 Type 1 diabetes mellitus with diabetic chronic kidney disease; N18.30 Chronic kidney disease, stage 3 unspecified; E78.5 Hyperlipidemia, unspecified; G47.30 Sleep apnea, unspecified; Z87.891 Personal history of nicotine dependence; Z98.890 Other specified postprocedural states; Z79.899 Other long term (current) drug therapy